=== PATIENT | female | born 1955 | race Caucasian/White ===

== ENCOUNTER 2018-03-01 13:21 | Emergency (ER) | payer BC ==
--- OUTSIDE RECORDS SUMMARY | 2018-03-01 13:24 | XMS REPORT ---
:1955 Author Organization [employer] Care Team Providers Name Role Phone Lucero, Na Provider Role Unavailable Allergies, Adverse Reactions, Alerts Substance Reaction Event Type N.K.D.A. Info Not Available Non Drug Allergy Problems Problem Type Condition Code Onset Dates Condition Status Problem Chronic kidney disease (CKD) stage N18.3 Active G3a/A1, moderately decreased glomerular filtration rate (GFR) between 45-59 mL/min/1.73 square meter and albuminuria creatinine ratio less than 30 mg/g Problem Depression with anxiety F41.8 Active Problem Mixed hyperlipidemia E78.2 Active Problem Encounter for routine adult Z00.01 Active physical exam with abnormal findings Problem Personal history of other malignant Z85.118 Active neoplasm of bronchus and lung Problem Pneumococcal vaccination Z23 Active administered at current visit Problem Low back pain M54.5 Active Problem Acquired hypothyroidism E03.9 Active Problem Essential hypertension I10 Active Problem Lung cancer C34.90 Active Assessment Personal history of other malignant Z85.118 Active neoplasm of bronchus and lung Assessment Mixed hyperlipidemia E78.2 Active Assessment Depression with anxiety F41.8 Active Assessment Chronic fatigue R53.82 Active Problem Chronic fatigue R53.82 Active Assessment Acquired hypothyroidism E03.9 Active Problem 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 Medications Medication Code Code Instructions Start End Status Dosage System Date Date Effexor XR [facility] 93037153238 37.5 MG Orally January 02, Active 1 capsule Once a day 2018 with food Lexapro ND 56041906128 10 MG Orally Inactive 1 tablet Once a day Crestor [facility] 07480633712 10 MG Orally Active 1 tablet Once a day Levothyroxine [facility] 49862417294 112 MCG Orally Active 1 tablet Sodium Once a day on an empty stomach in the morning Xanax ND 02990230358 0.5 MG Orally January 02, Active 1 tablet Twice a day 2017 Results Name Result Date Reference Range Unit Abnormality Flag Vitamin D, 25-Hydroxy Summary Purpose [employer] Submission
--- OUTSIDE RECORDS SUMMARY | 2018-03-01 13:24 | XMS REPORT | Clinical Summary ---
:1955 Author Organization [facility] Address [address] [place] [address] Care Team Providers Name Role Phone Barbi Lucero DO Primary Care Provider Allergies No Known Allergies Current Medications Prescription Sig. Disp. Refills Start Date End Date Status ALPRAZolam (XANAX) 0.5 mg. 0 01/02/2018 Active 0.5 MG tablet LEVOXYL 112 mcg 112 mcg. 0 01/21/2018 Active tablet venlafaxine XR 75 mg. 0 02/02/2018 Active (EFFEXOR-XR) 75 MG 24 hr capsule therapeutic Take 1 tablet Active multivitamin by mouth daily. (THERAGRAN) tablet CALCIUM Take by mouth. Active CITRATE-VITAMIN D3 ORAL gabapentin Take 1 capsule 90 capsule 0 02/25/2018 03/04/2018 Active (NEURONTIN) 300 mg (300 mg total) capsule by mouth 3 (three) times a day for 7 days. acetaminophen Take 1 tablet 15 tablet 0 02/25/2018 03/02/2018 Active (TYLENOL EXTRA (500 mg total) STRENGTH) 500 MG by mouth every tablet 8 (eight) hours for 5 days. naproxen (NAPROSYN) Take 1 tablet 6 tablet 0 02/25/2018 02/28/2018 375 MG tablet (375 mg total) by mouth 2 (two) times a day with meals for 3 days. Active Problems Problem Noted Date Lung nodule 02/24/2018 Encounters Date Type Specialty Care Team Description 02/26/2018 Telephone Cardiothoracic Marino Soriano Surgery MD [facility] 02/26/2018 Telephone Cardiothoracic Christianne Willard MA 02/24/2018 Hospital Encounter Radiology Marino Soriano Lung rosalva; MD [facility] Pre-op testing 02/24/2018 - Hospital Encounter Cardiology BoMarino Lung nodule 02/25/2018 MD [facility] 02/24/2018 Anesthesia Event Cardiothoracic Clifton Olguin Surgery 02/24/2018 Procedure Pass Cardiothoracic Surgery 02/24/2018 Surgery Cardiothoracic Bo Jonmayelin PERCUTANEOUS NEEDLE Surgery MD [facility] LOCALIZATION, ROBOTIC ASSISTED THORACOSCOPIC LEFT LOWER LOBE WEDGE RESECTION, POSSIBLE MEDIASTINAL LYMPH NODE DISSECTION 02/23/2018 Telephone Cardiothoracic Steve, Surgery Vanessa Newton NP 02/13/2018 Hospital Encounter Radiology Marino Soriano Lung nodule; MD [facility] Personal history of lung cancer 02/10/2018 Telephone Cardiothoracic Kiara, Surgery [place], [place] 02/09/2018 Telephone Cardiothoracic Christianne Craig, MIRLANDE 02/06/2018 Procedure Pass Radiology 02/06/2018 Orders Only Cardiothoracic Meiyoon, Lung nodule (Primary Dx); Surgery Vanessa Newton NP Personal history of lung cancer 02/05/2018 Hospital Encounter Radiology Marino Soriano MD 02/05/2018 Lab Lab Marino Soriano Lung nodule; MD [facility] Pre-op testing 02/05/2018 Office Visit Cardiothoracic Marino Soriano Lung nodule (Primary Dx ); Surgery MD [facility] Pre-op testing 02/05/2018 Hospital Encounter Pulmonology Marino Soriano MD 02/05/2018 Ancillary Orders Radiology Marino Soriano MD 02/05/2018 Orders Only Cardiothoracic ProviderChristianne MD 02/05/2018 Telephone Cardiothoracic Kiara Surgery [place], [place] 02/04/2018 Orders Only Cardiothoracic Kiara, Lung nodule (Primary Surgery Jeniffer, [place] Dx) 02/03/2018 Telephone Cardiothoracic Kiara Surgery [place], [place] 02/03/2018 Orders Only Cardiothoracic Provider, Christianne Scott MD after 02/28/2017 Family History Medical History Relation Name Comments Diabetes Father Lung disease Mother Relation Name Status Comments Father Mother Social History Tobacco Use Types Packs/Day Years Used Date Former Smoker Cigarettes 1 6 Quit: 07/2014 Smokeless Tobacco: Never Used Alcohol Use Drinks/Week oz/Week Comments Yes 4 Glasses of wine 2.4 Sex Assigned at Date Recorded Not on file Last Filed Vital Signs Vital Sign Reading Time Taken Blood Pressure 145/79 02/25/2018 1:54 PM CDT Pulse 66 02/25/2018 1:54 PM CDT Temperature 35.4 C (95.8 F) 02/25/2018 12:07 PM CDT Respiratory Rate 18 02/25/2018 4:14 AM CDT Oxygen Saturation 98% 02/25/2018 12:07 PM CDT Inhaled Oxygen Concentration - - Weight 82.1 kg (180 lb 14.4 oz) 02/25/2018 4:48 AM CDT Height 167.6 cm (5' 6") 02/24/2018 6:56 AM CDT Body Mass Index 29.2 02/25/2018 4:48 AM CDT Plan of Treatment Date Type Specialty Care Team Description 03/09/2018 Office Visit Cardiothoracic Surgery Vanessa Wilson NP [address] [phone] 04/02/2018 Office Visit Cardiothoracic Surgery Marino Soriano MD [address] [phone] Health Maintenance Due Date Last Done Comments CERVICAL CANCER SCREENING 12/08/1976 BREAST CANCER SCREENING 12/08/2005 COLON CANCER SCREENING 12/08/2005 SHINGRIX VACCINE (#1) 12/08/2005 ZOSTER VACCINE 2015 INFLUENZA VACCINE 04/01/2018 Procedures Procedure Name Priority Date/Time Associated Comments Diagnosis XR CHEST 1 VW PORTABLE STAT 02/25/2018 11:26 Results for this AM CDT procedure are in the results section. HC COMPLETE BLD COUNT Routine 02/25/2018 4:30 Results for this W/AUTO DIFF AM CDT procedure are in the results section. XR CHEST 1 VW PORTABLE Routine 02/25/2018 1:46 Results for this AM CDT procedure are in the results section. ESTIMATED GFR Routine 02/25/2018 12:00 Results for this AM CDT procedure are in the results section. COMPREHENSIVE METABOLIC Routine 02/25/2018 12:00 Results for this PANEL AM CDT procedure are in the results section. XR CHEST 1 VW PORTABLE STAT 02/24/2018 5:54 Results for this PM CDT procedure are in the results section. SURGICAL PATHOLOGY Routine 02/24/2018 4:31 Results for this REQUEST PM CDT procedure are in the results section. GLUCOSE LEVEL, SYRINGE STAT 02/24/2018 4:05 Results for this PM CDT procedure are in the results section. IONIZED CALCIUM, STAT 02/24/2018 4:05 Results for this ARTERIAL PM CDT procedure are in the results section. POTASSIUM, SYRINGE STAT 02/24/2018 4:05 Results for this PM CDT procedure are in the results section. HEMOGLOBIN, SYRINGE STAT 02/24/2018 4:05 Results for this PM CDT procedure are in the results section. SODIUM LEVEL, SYRINGE STAT 02/24/2018 4:05 Results for this PM CDT procedure are in the results section. ARTERIAL BLOOD GAS, STAT 02/24/2018 4:05 Results for this CORRECTED PM CDT procedure are in the results section. ARTERIAL LINE Routine 02/24/2018 3:31 Results for this PM CDT procedure are in the results section. IONIZED CALCIUM, STAT 02/24/2018 3:14 Results for this ARTERIAL PM CDT procedure are in the results section. GLUCOSE LEVEL, SYRINGE STAT 02/24/2018 3:14 Results for this PM CDT procedure are in the results section. POTASSIUM, SYRINGE STAT 02/24/2018 3:14 Results for this PM CDT procedure are in the results section. HEMOGLOBIN, SYRINGE STAT 02/24/2018 3:14 Results for this PM CDT procedure are in the results section. ARTERIAL BLOOD GAS, STAT 02/24/2018 3:14 Results for this CORRECTED PM CDT procedure are in the results section. SODIUM LEVEL, SYRINGE STAT 02/24/2018 3:14 Results for this PM CDT procedure are in the results section. TN AN ELECTIVE Routine 02/24/2018 3:09 Results for this ENDOTRACHEAL AIRWAY PM CDT procedure are in the results section. CT CHEST WO CONTRAST Routine 02/24/2018 7:51 Lung nodule Results for this AM CDT Pre-op testing procedure are in the results section. MRI BRAIN W WO CONTRAST Routine 02/13/2018 11:55 Lung nodule Results for this AM CDT Personal history procedure are in of lung cancer the results section. ECG 12-LEAD Routine 02/05/2018 4:40 Results for this PM CDT procedure are in the results section. PREPARE RBC Routine 02/05/2018 4:35 Results for this PM CDT procedure are in the results section. PARTIAL THROMBOPLASTIN Routine 02/05/2018 4:35 Lung nodule Results for this TIME (PTT) PM CDT Pre-op testing procedure are in the results section. PROTHROMBIN TIME WITH Routine 02/05/2018 4:35 Lung nodule Results for this INR PM CDT Pre-op testing procedure are in the results section. HC COMPLETE BLD COUNT Routine 02/05/2018 4:35 Lung nodule Results for this W/AUTO DIFF PM CDT Pre-op testing procedure are in the results section. TYPE AND SCREEN Routine 02/05/2018 4:35 Lung nodule Results for this PM CDT Pre-op testing procedure are in the results section. ESTIMATED GFR Routine 02/05/2018 4:14 Results for this PM CDT procedure are in the results section. COMPREHENSIVE METABOLIC Routine 02/05/2018 4:14 Lung nodule Results for this PANEL PM CDT Pre-op testing procedure are in the results section. SPIROMETRY, DIFFUSION, Routine 02/05/2018 2:27 Lung nodule Results for this LUNG VOLUMES PM CDT procedure are in the results section. PULMONARY FUNCTION TEST Routine 02/05/2018 12:[address] WHOLE BODY Routine 01/22/2018 9:43 Results for this EXTERNAL STUDY AM CDT procedure are in the results section. PET CT SKULL BASE MID Routine 01/22/2018 12:00 THIGH EXTERNAL STUDY AM CDT CT SOFT TISSUE NECK W Routine 01/14/2018 12:[address] CHEST W CONTRAST Routine 01/14/2018 12:00 AM CDT after 02/28/2017 Results XR Chest 1 Vw Portable (02/25/2018 11:26 AM)Only the most recent of3 resultswithin the time period is included. Narrative Performed At EXAMINATION:XR CHEST 1 VW PORTABLE HM [facility] CLINICAL HISTORY:Chest Tube Removal XR CHEST 1 VW PORTABLEimages are submitted COMPARISON:02/18/1718 FINDINGS: The previously seen left thoracostomy tube has been removed. There is no evidence of a pneumothorax. The cardiac silhouette is normal in size. The right lung zone remains clear. There is no evidence of a pneumothorax. Persistent subcutaneous emphysema seen in the soft tissues of the left neck. IMPRESSION: 1. Interval removal of the left thoracostomy tube with no evidence of a pneumothorax. [facility]-[id number] Procedure Note Hm Interface, Radiology Results Incoming - 02/25/2018 11:44 AM CDT EXAMINATION: XR CHEST 1 VW PORTABLE CLINICAL HISTORY: Chest Tube Removal XR CHEST 1 VW PORTABLE images are submitted COMPARISON: 02/18/1718 FINDINGS: The previously seen left thoracostomy tube has been removed. There is no evidence of a pneumothorax. The cardiac silhouette is normal in size. The right lung zone remains clear. There is no evidence of a pneumothorax. Persistent subcutaneous emphysema seen in the soft tissues of the left neck. IMPRESSION: 1. Interval removal of the left thoracostomy tube with no evidence of a pneumothorax. [facility]-[id number] Performing Organization Address City/State/Zipcode Phone Number DANIEL [address] [place] [address] CBC with platelet and differential (02/25/2018 4:30 AM)Only the most recent of2 resultswithin the time period is included. WBC 9.35 4.50 - 11.00 k/uL [facility] GENOMIC MEDICINE RBC 4.13 (L) 4.20 - 5.50 m/uL [facility] HGB 11.5 (L) 12.0 - 16.0 g/dL [facility] GENOMIC MEDIC[facility] HCT 37.2 37.0 - 47.0 % [facility] GEN[facility]IC MEDICINE MCV 90.1 82.0 - 100.0 fL [facility]IC[facility] MCH 27.8 27.0 - 34.0 pg [facility]ICINE MCHC 30.9 (L) 31.0 - 37.0 g/dL [facility] GENOMIC MEDICINE RDW - SD 42.8 37.0 - 55.0 fL [facility] GENOMIC MEDICINE MPV 11.2 8.8 - 13.2 fL [facility]IC[facility] Platelet count 143 (L) 150 - 400 k/uL [facility]ICINE Nucleated RBC 0.00 /100 WBC [facility] GENOMIC MEDICINE Neutrophils 89.2 (H) 39.0 - 69.0 % [facility]IC[facility] Lymphocytes 7.2 (L) 25.0 - 45.0 % [facility]ICINE Monocytes 3.3 0.0 - 10.0 % [facility]OMIC MEDICINE Eosinophils 0.0 0.0 - 5.0 % [facility] GENOMIC MEDICINE Basophils 0.1 0.0 - 1.0 % [facility] GENOMIC MEDICINE Immature granulocytes 0.2Comment: 0.0 - 1.0 % [facility] OF "Immature PATHOLOGY AND GENOMIC granulocytes" MEDICINE (promyelocytes, myelocytes, metamyelocytes) Specimen Blood Performing Organization Address City/[facility] Phone Number [facility] PATHOLOGY AND [address] [place] [id number] [employer] [facility] Estimated GFR (02/25/2018)Only the most recent of2 resultswithin the time period is included. GFR Non Af Amer 85 mL/min/1.73 m2 [facility] PATHOLOGY [facility] GENOMIC MEDICINE GFR Af Amer >90 mL/min/1.73 m2 [facility] OF Comment: PATHOLOGY AND GENOMIC Chronic kidney disease: <60 mL/min/1.73m2 MEDICINE Kidney failure: <15 mL/min/1.73m2 The estimated GFR is calculated from the IDMS-traceable Modification of Diet in Renal Disease Equation. The accuracy of the calculation is poor when the creatinine is normal. Calculated values >90 mL/min/1.73m2 are not reported. This equation has not been validated in children (<18 years), women, the elderly (>70 years), or ethnic groups other than Caucasians and Americans. Specimen Plasma specimen Performing Organization Address City/[facility] Cent[facility]ode Phone Number [facility] PATHOLOGY AND [address] [place] [address] [facility] Comprehensive metabolic panel (02/25/2018)Only the most recent of2 resultswithin the time period is included. Sodium 139 135 - 148 mEq/L [facility] PATHOLOGY AND GENOMIC MEDICINE Potassium 5.0 3.5 - 5.0 mEq/L [facility] PATHOLOGY AND GENOMIC MEDICINE Chloride 98 98 - 112 mEq/L [facility] PATHOLOGY AND GENOMIC MEDICINE CO2 30 24 - 31 mEq/L [facility] PATHOLOGY AND GENOMIC MEDICINE Anion gap 11@ANIO 7 - 15 mEq/L [facility] PATHOLOGY AND GENOMIC MEDICINE BUN 13 8 - 23 mg/dL [facility] PATHOLOGY AND GENOMIC MEDICINE Creatinine 0.7 0.5 - 0.9 mg/dL [facility]OLOGY AND GENOMIC MEDICINE Glucose 126 (H) 65 - 99 mg/dL [facility] PATHOLOGY AND GENOMIC MEDICINE Calcium 9.4 8.8 - 10.2 mg/dL [facility] PATHOLOGY AND GENOMIC MEDICINE Protein 6.5 6.3 - 8.3 g/dL [facility] DEPARTMENT OF Comment: PATHOLOGY AND GENOMIC 4.6-7.0 g/dL MEDICINE 1 week 4.4-7.6 g/dL 7 months-1year5.1-7.3 g/dL 1-2 years5.6-7.5 g/dL >3 years6.0-8.0 g/dL 18-150 6.3-8.3 g/dL Albumin 3.5 3.5 - 5.0 g/dL [facility] PATHOLOGY AND GENOMIC MEDICINE A/G ratio 1.2 0.7 - 3.8 [facility] PATHOLOGY AND GENOMIC MEDICINE Alkaline phosphatase 69 35 - 104 U/L [facility] OF PATHOLOGY AND GENOMIC MEDICINE AST 20 10 - 35 U/L [facility] OF PATHOLOGY AND GENOMIC MEDICINE ALT 13 5 - 50 U/L [facility] OF PATHOLOGY AND GENOMIC MEDICINE Total bilirubin <0.2 0.0 - 1.2 mg/dL [facility] OF PATHOLOGY AND GENOMIC MEDICINE Specimen Plasma specimen Performing Organization Address City/[facility]ercode Phone Number [facility] DEPARTMENT OF PATHOLOGY AND [address] [place] [address] GENOMIC MEDICINE Surgical pathology request (02/24/2018 4:31 PM) [facility] OF PATHOLOGY AND GENOMIC MEDICINE Surgical pathology report See link below for PDF [facility] OF Lab Report PATHOLOGY AND GENOMIC MEDICINE Result status This is Final Report to [facility] OF [id number] PATHOLOGY AND GENOMIC MEDICINE Performing Organization Address City/[facility] Cent[facility]ode Phone Number [facility] DEPARTMENT OF PATHOLOGY AND [address] [place] [id number] GENOMIC MEDICINE Sodium level, syringe (02/24/2018 4:05 PM)Only the most recent of2 resultswithin the time period is included. Sodium, syringe 139 135 - 148 mEq/L [facility] OF PATHOLOGY AND GENOMIC MEDICINE Specimen Blood Performing Organization Address City/[facility] Cent[facility]ode Phone Number [facility]MENT OF PATHOLOGY AND [address] [place] [phone] GENOMIC MEDICINE Potassium, syringe (02/24/2018 4:05 PM)Only the most recent of2 resultswithin the time period is included. Potassium, syringe 3.0 (LL) 3.5 - 5.0 mEq/L [facility] OF PATHOLOGY AND GENOMIC MEDICINE Specimen Blood Performing Organization Address [facility] Centercode Phone Number [facility] DEPARTMENT OF PATHOLOGY AND [address] [place] [address] Ionized calcium, arterial (02/24/2018 4:05 PM)Only the most recent of2 resultswithin the time period is included. Ionized calcium, arterial 0.91 (L) 1.11 - 1.32 mmol/L [facility] OF PATHOLOGY AND GENOMIC MEDICINE Specimen Blood Performing Organization Address [facility]oco Phone Number [facility] DEPARTMENT OF PATHOLOGY AND [address] [place] [address] Hemoglobin, syringe (02/24/2018 4:05 PM)Only the most recent of2 resultswithin the time period is included. Hemoglobin, syringe 10.1 (L) 12.0 - 16.0 g/dL [facility] OF PATHOLOGY AND GENOMIC MEDICINE Specimen Blood Performing Organization Address [facility] Phone Number [facility] DEPARTMENT OF PATHOLOGY AND [address] [place] [address] Glucose level, syringe (02/24/2018 4:05 PM)Only the most recent of2 resultswithin the time period is included. Glucose, syringe 103 (H) 65 - 99 mg/dL [facility] OF PATHOLOGY AND GENOMIC MEDICINE Specimen Blood Performing Organization Address [facility] Phone Number [facility] DEPARTMENT OF PATHOLOGY AND [address] [place] [address] Arterial blood gas, corrected (02/24/2018 4:05 PM)Only the most recent of2 resultswithin the time period is included. pH, arterial 7.38 7.35 - 7.45 [facility] OF PATHOLOGY AND GENOMIC MEDICINE pCO2, arterial 40 35 - 45 mmHg [facility] OF PATHOLOGY AND GENOMIC MEDICINE pO2, arterial 157 (H) 80 - 90 mmHg [facility] OF PATHOLOGY AND GENOMIC MEDICINE Temperature, Celsius 37.0 Degrees C [facility] OF PATHOLOGY AND GENOMIC MEDICINE O2 saturation, arterial 99 95 - 100 % [facility] OF PATHOLOGY AND GENOMIC MEDICINE pH, arterial corrected 7.38 [facility] OF PATHOLOGY AND GENOMIC MEDICINE pCO2, arterial corrected 40 mmHg [facility] OF PATHOLOGY AND GENOMIC MEDICINE pO2, arterial corrected 157 mmHg [facility] OF PATHOLOGY AND GENOMIC MEDICINE Base excess, arterial -1 -2 - 2 mEq/L [facility] OF PATHOLOGY AND GENOMIC MEDICINE Specimen Blood Performing Organization Address City/State/Zipcode Phone Number [facility] DEPARTMENT OF PATHOLOGY AND [address] [place] [address] GENOMIC MEDICINE Arterial line (02/24/2018 3:31 PM) Narrative Performed At Valeria Davalos MD 02/24/20183:32 PM Arterial line Performed by: VALERIA DAVALOS Authorized by: DIANNE MONTALVO Patient Location:OR Start Time:02/24/2018 2:55 PM End Time:02/24/2018 3:03 PM Staff: Anesthesiologist:DIANNE MONTALVO Resident/SYSTEMS SOFTWARE SPECIALIST/AA:VALERIA DAVALOS Performed by:Anesthesiologist Pre-procedure: patient identified, IV checked, site and side verified, risks and benefits discussed, procedure verified, surgical consent complete, patient position confirmed, monitors and equipment checked and pre-op evaluation complete MSBT: antiseptic used, all elements of maximal sterile barrier technique followed, hand hygiene performed, cap/gown used by other personnel and solutions labeled TIme Out Performed:02/24/2018 2:55 PM Indications: Indications: hemodynamic monitoring Anesthesia: Anesthesia:General Procedure Details: Arterial Line placement:Placed post induction Line placement site:Brachial Line placement side:Right Arterial line gauge:20 G Number of attempts:2 Ultrasound guidance used: Yes Post-procedure: Post-procedure:Sterile dressing applied Post procedure circulation, sensation, movement:Normal Patient tolerance:Patient tolerated the procedure well with no immediate complications ANESTHESIA INTUBATION (02/24/2018 3:09 PM) Narrative Performed At Valeria Davalos MD 02/24/20183:16 PM Airway Date/Time: 02/24/2018 2:46 PM Performed by: VALERIA DAVALOS Authorized by: DIANNE MONTALVO Location:OR Urgency:Elective Anesthesiologist:DIANNE MONTALVO Resident/SYSTEMS SOFTWARE SPECIALIST/AA:VALERIA DAVALOS Other Anesthesia Staff:VANE LOUISE Performed by: anesthesiologist Preoxygenated with 100% O2: Yes C-spine Precautions Maintained Throughout: No Mask Ventilation:Easy mask Final Airway Type:Endotracheal airway Final Endotracheal Airway:ETT - double lumen left Cuffed: Yes Technique Used:Direct laryngoscopy Devices/Methods Used in Placement:Fiberoptic Insertion Site:Oral Blade Type:Jean Paul Laryngoscope Blade/Videolaryngoscope Blade Size:3 ETT Double Lumen (fr):37 Cuff at minimum occlusion pressure: Yes Measured from:Teeth ETT to Teeth (cm):30 Placement Verified by: CO2 detection, direct visualization, equal breath sounds and fiber optic visualization Laryngoscopic view:Grade IIa - partial view of glottis Rapid Sequence Induction (RSI): No Modified RSI: No Number of Attempts at Approach:2 DL x 1 with Williamson 2 by SHIN Louise. DL x 1 with Mac [address] Chest Wo Contrast (02/24/2018 7:51 AM) Narrative Performed At EXAMINATION: [employer] [address] CHEST WO CONTRAST CLINICAL HISTORY: R91.1 Solitary pulmonary nodule, Z01.818 Encounter for other preprocedural examination, LLLlung nodule TECHNIQUE:Multiple axial images of the chest were obtained without intravenous contrast. The lack of intravenous contrast reduces the sensitivity of detecting solid organ disease and evaluating vasculature. Sagittal and coronal computerized reformatted images were also obtained. CT imaging was performed with iterative reconstruction techniques and/or automated exposure control to reduce radiation dose. COMPARISON: None. IMPRESSION: Study was performed for preoperative mapping. The patient was in a left decubitus position. There is infiltration about the right hilum and the right mainstem bronchus. There is a 1 cm nodule present in the superior segment of the left lower lobe. A pleural effusion is not present. No bony destructive lesions are appreciated. [facility]-[id number] Procedure Note Interface, Radiology Results Incoming - 02/24/2018 8:11 AM CDT EXAMINATION: CT CHEST WO CONTRAST CLINICAL HISTORY: R91.1 Solitary pulmonary nodule, Z01.818 Encounter for other preprocedural examination, LLLlung nodule TECHNIQUE: Multiple axial images of the chest were obtained without intravenous contrast. The lack of intravenous contrast reduces the sensitivity of detecting solid organ disease and evaluating vasculature. Sagittal and coronal computerized reformatted images were also obtained. CT imaging was performed with iterative reconstruction techniques and/or automated exposure control to reduce radiation dose. COMPARISON: None. IMPRESSION: Study was performed for preoperative mapping. The patient was in a left decubitus position. There is infiltration about the right hilum and the right mainstem bronchus. There is a 1 cm nodule present in the superior segment of the left lower lobe. A pleural effusion is not present. No bony destructive lesions are appreciated. [facility]-[id number] Performing Organization Address [facility]/Zipcode Phone Number DANIEL [address] [place] [address] MRI Brain W Wo Contrast (02/13/2018 11:55 AM) Narrative Performed At EXAMINATION: MRI BRAIN W WO CONTRAST [facility] COMPARISON: None CLINICAL HISTORY R91.1 Solitary pulmonary nodule, Z85.118 Personal history of other malignant neoplasm of bronchus and lung, lung nodulepersonal h o lung cancer (Stage IIIB). TECHNIQUE: Multiplanar multisequence examination was performed with and without contrast FINDINGS: There is no definite diffusion restriction. The ventricles and subarachnoid spaces are mildly dilated. There are minimal chronic microvascular ischemic changes in the centrum semiovale bilaterally. There is no acute hemorrhage. There is no hemosiderin deposition. The craniocervical junction is unremarkable. There are no abnormal enhancing lesions within the brain parenchyma or the leptomeninges There is a partially empty sella turcica. IMPRESSION: Mild involutional changes Partially empty sella turcica. No abnormal enhancing metastatic disease. [facility]-[id number] Procedure Note Interface, Radiology Results Incoming - 02/13/2018 2:03 PM CDT EXAMINATION: MRI BRAIN W WO CONTRAST COMPARISON: None CLINICAL HISTORY R91.1 Solitary pulmonary nodule, Z85.118 Personal history of other malignant neoplasm of bronchus and lung, lung nodule personal h o lung cancer (Stage IIIB). TECHNIQUE: Multiplanar multisequence examination was performed with and without contrast FINDINGS: There is no definite diffusion restriction. The ventricles and subarachnoid spaces are mildly dilated. There are minimal chronic microvascular ischemic changes in the centrum semiovale bilaterally. There is no acute hemorrhage. There is no hemosiderin deposition. The craniocervical junction is unremarkable. There are no abnormal enhancing lesions within the brain parenchyma or the leptomeninges There is a partially empty sella turcica. IMPRESSION: Mild involutional changes Partially empty sella turcica. No abnormal enhancing metastatic disease. [facility]-[id number] Performing Organization Address City/[facility]/Zipcode Phone Number DANIEL [address] [place] [address] ECG 12 lead (02/05/2018 4:40 PM) Ventricular rate 74 [facility] Atrial rate 74 [facility] TN interval 162 [facility] QRSD interval 84 [facility] QT interval 390 [facility] QTC interval 432 [facility] P axis 1 81 [facility] QRS axis 1 57 [facility] T wave axis 8 [facility] EKG impression Normal sinus rhythm-Low voltage QRS-Cannot [facility] rule out Anterior infarct , age undetermined-Abnormal ECG-No previous ECGs available- Performing Organization Address [facility] Phone Number [facility] [address] [place] [phone] Partial thromboplastin time, activated (02/05/2018 4:35 PM) PTT 26.8 23.0 - 36.0 sec [facility] DEPARTMENT OF PATHOLOGY Comment: AND GENOMIC MEDICINE PTT therapeutic range for unfractionated heparin is 61.0-112.0 seconds which corresponds to Anti-Xa 0.3-0.7 U/ml. Specimen Blood Performing Organization Address [facility] Cent[facility]ode Phone Number [facility] AND [address] [place] [address] [facility] Smarty Ring Prothrombin time with INR (02/05/2018 4:35 PM) Prothrombin time 13.6 12.0 - 15.0 sec [facility] DEPARTMENT OF PATHOLOGY AND GENOMIC MEDICINE INR 1.0 [facility] DEPARTMENT OF Comment: PATHOLOGY AND GENOMIC The International Normalized Ratio (INR) is a therapeutic MEDICINE monitoring tool for patients who are stable on oral anticoagulant therapy. An INR of 2.0-3.0 is suggested for deep vein thrombosis/pulmonary embolism. Specimen Blood Performing Organization Address [facility] Centercode Phone Number [facility] AND [address] [place] [address] [facility] Prepare RBC (02/05/2018 4:35 PM) Product name Apheresis Red Cell AS3 #2 LR [facility] DEPARTMENT OF PATHOLOGY AND GENOMIC MEDICINE Unit number [id number] [facility]PART[facility]OLOGY AND GENOMIC MEDICINE Product code [id number] [facility] PATHOLOGY AND GENOMIC MEDICINE Dispense status Returned to not [facility] OF transfused PATHOLOGY AND GENOMIC MEDICINE Blood expiration date [facility]OLOGY AND GENOMIC MEDICINE Blood type code 0600 [facility] DE[facility] OF PATHOLOGY AND GENOMIC MEDICINE Blood type A NEGATIVE [facility] DEPART[facility] OF PATHOLOGY AND GENOMIC MEDICINE Product name Apheresis -1 LR #2 [facility] DEPART[facility] OF PATHOLOGY AND GENOMIC MEDICINE Unit number [id number] [facility] PATHOLOGY AND GENOMIC MEDICINE Product code [id number] [facility] DEPART[facility] OF PATHOLOGY AND GENOMIC MEDICINE Dispense status Returned to BB not [facility] OF transfused PATHOLOGY AND GENOMIC MEDICINE Blood expiration date [facility] OF PATHOLOGY AND GENOMIC MEDICINE Blood type code 0600 [facility] DEPARTMENT OF PATHOLOGY AND GENOMIC MEDICINE Blood type A NEGATIVE [facility] DE[facility] OF PATHOLOGY AND GENOMIC MEDICINE Performing Organization Address City/[facility] Centercode Phone Number [facility] DEPART[facility] OF [facility]OLOGY AND [address] [place] [address] GENOMIC MEDICINE Type and screen (02/05/2018 4:35 PM) ABO grouping A [facility] OF PATHOLOGY AND GENOMIC MEDICINE Rh type NEG [facility] DE[facility] OF PATHOLOGY AND GENOMIC MEDICINE Antibody screen (gel) NEG [facility] DEPARTMENT OF PATHOLOGY AND GENOMIC MEDICINE Specimen Blood Performing Organization Address City/[facility]ercode Phone Number [facility] DEPART[facility] OF [facility]OLOGY AND [address] [place] [address] GENOMIC MEDICINE Spirometry, diffusion, lung volumes (02/05/2018 2:27 PM) FEV1 Pre 1.53 2.15 - 3.43 L [facility] FEV1/FVC % Pre 75.82 67.84 - 87.43 % [facility] FVC Pre 2.01 2.87 - 4.38 L [facility] PEF Pre 3.46 4.78 - 8.53 L/s [facility] FEF 25-75% Pre 1.23 1.08 - 3.80 L/s [facility] DLCO Pre 16.39 16.11 - 29.11 ml/(min*mmHg) [facility] DL/VA Pre 5.36 2.96 - 5.59 ml/(min*mmHg*L) [facility] VA SB Pre 3.06 4.45 - 6.66 L [facility] DLCOc Pre 16.39 16.11 - 29.11 ml/(min*mmHg) [facility] KCOc SB Pre 5.36 2.96 - 5.59 ml/(min*mmHg*L) [facility] Hb Pre 13.40 g(Hb)/dL [facility] R0.5IN Pre 3.04 3.06 - 3.06 cmH2O*s/L [facility] FRCpl Pre 2.44 2.05 - 3.70 L [facility] RV Pre 1.86 1.50 - 2.65 L [facility] TLC Pre 3.89 4.45 - 6.43 L [facility] RV % TLC Pre 47.68 30.45 - 49.63 % [facility] VC Pre 2.04 2.87 - 4.38 L [facility] ERV Pre 0.59 0.80 - 0.80 L [facility] IC Pre 1.45 2.36 - 2.36 L [facility] sR0.5IN Pre 8.38 cmH2O*s [facility] Raw Pre 4.02 3.06 - 3.06 cmH2O*s/L [facility] sGaw Predicted 0.09 0.10 - 0.10 1/(cmH2O*s) [facility] FEV1 Predicted 2.79 [facility] FEV1 LLN 2.15 [facility] FEV1 % Pre of Predicted 54.6 % [facility] FVC Predicted 3.63 [facility] FVC LLN 2.87 [facility] FVC % Pre of Predicted 55.5 % [facility] FEV1/FVC % Predicted 78 [facility] FEV1/FVC % LLN 68 [facility] FEV1/FVC % Pre of Predicted 97.7 % [facility] FEF 25-75% Predicted 2.44 [facility] FEF 25-75% LLN 1.08 [facility] FEF 25-75% % Pre of Predicted 50.5 % [facility] PEF Predicted 6.65 [facility] PEF LLN 4.78 [facility] PEF % Pre of Predicted 52.1 % [facility] VC Predicted 3.63 [facility] VC LLN 2.87 [facility] VC % Pre of Predicted 56.2 % [facility] ERV Predicted 0.80 [facility] ERV LLN 0.80 [facility] ERV % Pre of Predicted 73.1 % [facility] FRCpl % Predicted 2.87 [facility] FRCpl % LLN 2.05 [facility] FRCpl % Pre of Predicted 85.0 % [facility] IC Predicted 2.36 [facility] IC LLN 2.36 [facility] IC % Pre of Predicted 61.5 % [facility] RV Predicted 2.07 [facility] RV LLN 1.50 [facility] RV % Pre of Predicted 89.6 % [facility] RV % TLC Predicted 40 [facility] RV % TLC LLN 30 [facility] RV % TLC % Pre of Predicted 119.1 % [facility] TLC Predicted 5.44 [facility] TLC LLN 4.45 [facility] TLC % Pre of Predicted 71.5 % [facility] Raw Predicted 3.06 [facility] Raw LLN 3.06 [facility] Raw % Pre of Predicted 131.4 % [facility] R0.5IN Predicted 3.06 [facility] R0.5IN LLN 3.06 [facility] R0.5IN % Pre of Predicted 99.5 % [facility] sGaw Predicted 0.10 [facility] sGaw LLN 0.10 [facility] sGaw % Pre of Predicted 88.7 % [facility] DLCO Predicted 22.61 [facility] DLCO LLN 16.11 [facility] DLCO % Pre of Predicted 72.5 % [facility] DLCOc Predicted 22.61 [facility] DLCOc LLN 16.11 [facility] DLCOc % Pre of Predicted 72.5 % [facility] DL/VA Predicted 4.28 [facility] DL/VA LLN 2.96 [facility] DL/VA % Pre of Predicted 125.3 % [facility] KCOc SB Predicted 4.28 [facility] KCOc SB LLN 2.96 [facility] KCOc SB % Pre of Predicted 125.3 % [facility] VA SB Predicted 5.55 [facility] VA SB LLN 4.45 [facility] VA SB % Pre of Predicted 55.1 % [facility] MIP Predicted 55.05 [facility] MIP LLN 24.71 [facility] MEP Predicted 68.87 [facility] MEP LLN 24.67 [facility] MVV Predicted 103 [facility] MVV LLN 87 [facility] Performing Organization Address City/State/Zipcode Phone Number [facility] [address] [place] [address] Pulmonary function tests, complete (02/05/2018) Narrative Performed At PET/CT Whole Body External Study (01/22/2018 9:43 AM) Narrative Performed At This exam was not acquired at a [facility] facility and has not been [facility] interpreted by a [facility] Provider.The exam was imported into our imaging system for comparisons purposes. Performing Organization Address City/State/Zipcode Phone Number LOBO SANCHEZ [address] [place] [address] PET/CT Skull Base Mid Thigh External Study (01/22/2018) Narrative Performed At CT Chest W Contrast (01/14/2018) Narrative Performed At CT Soft Tissue Neck W Contrast (01/14/2018) Narrative Performed At after 02/28/2017 Insurance Payer Benefit Plan / Group Subscriber ID Type Phone Address BCBS BCBS CHOICE PPO/FEDERAL EMPL PPO xxxxxxxxxxxx PPO Work: [id number] [facility] [phone] [address]. Madisyn [place], [place] [address] [phone] [facility]
--- OUTSIDE RECORDS SUMMARY | 2018-03-01 13:24 | XMS REPORT ---
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 Medications Medication Code Code Instructions Start End Status Dosage System Date Date Synthroid [facility] 18694147227 112 MCG Inactive 1 EACH ONCE A DAY ORALLY Crestor [facility] 46669094602 10 MG Orally Active 1 tablet Once a day Levothyroxine [facility] 11016032242 100 MCG Orally Active 1 tablet Sodium Once a day on an empty stomach in the morning Xanax ND 49555837877 0.5 MG Orally January 02, Active 1 tablet Twice a day 2017 Effexor XR [facility] 19821395143 37.5 MG Orally Inactive 1 capsule Once a day with food Effexor XR [facility] 77628032698 75 MG Orally January 02, Active 1 capsule Once a day 2018 with food Results No Known Results Immunizations Vaccine Administration Date Pneumovax February 06, 2018 Summary Purpose eClinicalWorks Submission
[2018-03-01 14:27] LABS: Absolute Lymphocytes (CBC) 1.1 K/uL (0.7-4.9); Absolute Monocytes 0.6 K/uL (0.1-1.3); Absolute Neutrophil 5.5 K/uL (1.8-8.0); Basophils % 0.5 % (0-1.3); Eosinophils % 2.4 % (0-4.4); Hematocrit 41.3 % (36.0-45.0); Lymphocytes % 14.5 % (15.3-44.8); MCH 27.9 pg (27.0-35.0); MCV 85.5 fL (80-100); MPV 9.3 fL (7.6-11.3); Monocytes % 7.8 % (3.3-12.3); RBC Red Blood Cell Count 4.83 M/uL (3.86-4.86)
[2018-03-01 14:33] LABS: Protime INR 0.95
[2018-03-01 14:54] LABS: ALT/SGPT 44 U/L (12-78); AST/SGOT 42 U/L (15-37); Albumin 3.8 g/dL (3.4-5.0); Alkaline Phosphatase 81 U/L (45-117); BUN Blood Urea Nitrogen 15 mg/dL (7-18); Bicarbonate 33 mmol/L (21-32); Bilirubin Direct < 0.1 mg/dL (0-0.2); Bilirubin Total 0.3 mg/dL (0.2-1.0); CKMB Creatine Kinase MB < 1.0 ng/mL (0.3-3.6); Creatine Phosphokinase 70 U/L (26-192); Glucose Level 91 mg/dL (74-106); Magnesium 2.4 mg/dL (1.8-2.4); NT PRO-BNP 103 pg/mL (<125); Potassium 4.8 mmol/L (3.5-5.1); Protein, Total 7.4 g/dL (6.4-8.2); Sodium Level 141 mmol/L (136-145)
--- NOTE | 2018-03-01 15:43 | RAD REPORT ---
EXAM DESCRIPTION: CT - Chest For Pe Angio - 03/01/2018 3:25 pm CLINICAL HISTORY: Chest pain. ABDOMINAL DISTENTION COMPARISON: Thorax W/ Con dated 01/14/2018; Ct Skull/Thigh dated 01/22/2018; Abdomen Pelvis W Contra st dated 03/01/2018 TECHNIQUE: CT angiogram of the pulmonary arteries was performed with MIP. All CT scans are performed using dose optimization technique as appropriate and may include automated exposure control or mA/KV adjustment according to patient size. FINDINGS: No evidence of pulmonary thromboembolism. No acute aortic finding demonstrated. Postsurgical changes are present in the superior segment left lower lobe medially. Small amount of le ft pleural thickening or pleural fluid is present. Ill-defined airspace opacity is present in the rig ht upper lobe medially, likely related to scarring. No acute airspace consolidations suggest bronchop neumonia. No pericardial effusion or right pleural effusion. No concerning bony finding. IMPRESSION: No evidence of pulmonary thromboembolism. Postsurgical changes superior segment left lower lobe medially. No acute lung finding suspected.
--- NOTE | 2018-03-01 15:45 | RAD REPORT ---
EXAM DESCRIPTION: CTAbdomen Pelvis W Contrast - 03/01/2018 3:25 pm CLINICAL HISTORY: Abdominal pain. CONSTIPATION COMPARISON: Chest Abdomen Pelvis W Cont dated 06/25/2017; Ct Skull/Thigh dated 01/22/2018; Thorax W/ Con dated 01/14/2018 TECHNIQUE: Biphasic CT imaging of the abdomen and pelvis was performed with 100 ml non-ionic IV cont rast. All CT scans are performed using dose optimization technique as appropriate and may include automated exposure control or mA/KV adjustment according to patient size. FINDINGS: Small amount of left pleural fluid is noted.Postsurgical changes are present superior segm ent left lower lobe. The liver, spleen, pancreas, adrenal glands and kidneys are within normal limits. Small benign cyst i s noted right kidney. Colonic diverticulosis is noted without diverticulitis. No bowel obstruction, free air, free fluid or abscess. Small fat containing umbilical hernia. The mitali endix is normal. No evidence of significant lymphadenopathy. No suspicious bony findings. Air is present in the urinary bladder. IMPRESSION: Significant air is present in the urinary bladder which may be related to recent instrum entation or infection. Colonic diverticulosis without diverticulitis.
--- NOTE | 2018-03-01 16:19 | EDPHYS ---
Physician Documentation [facility] Name: Lynda Méndez Age: 62 yrs Sex: Female : 1955 Arrival Date: 03/01/2018 Time: 13:22 Bed 25 Private MD: Barbi Lucero ED Physician Yakov Everett HPI: 03/01 14:10 This 62 yrs old Female presents to ER via Ambulatory with complaints of High snw Blood Pressure. 14:10 The patient has elevated blood pressure and discovered this at home. Onset: The snw symptoms/episode began/occurred and became persistent. Modifying factors: The symptoms are aggravated by activity. Associated signs and symptoms: The patient has no apparent associated signs or symptoms. Severity of symptoms: At its worst the blood pressure was 150 mm Hg. It is unknown whether or not the patient has had similar symptoms in the past. The patient has been recently seen by a physician: Inpatient at [facility]. pt had biopsy of lung lesion, lymph nodes, had chest tube placed and then removed. Historical: - PMHx: 13:39 completed chemo and radiation; lung CA ( Aug 2014 diagnosed); lk1 - PSHx: 13:39 C section; biopsy of lymph noed to R anterior chest wall.; Tonsillectomy; lk1 13:40 10mm lump removed from LLL lung; lk1 - Immunization history:: Adult Immunizations up to date. - Social history:: Smoking status: Patient/guardian denies using tobacco. - Ebola Screening: : No symptoms or risks identified at this time. ROS: 14:08 Constitutional: Negative for fever, chills, and weight loss, Eyes: Negative for injury, snw pain, redness, and discharge, ENT: Negative for injury, pain, and discharge, Neck: Negative for injury, pain, and swelling, Cardiovascular: Negative for chest pain, palpitations, and edema, Respiratory: Negative for shortness of breath, cough, wheezing, and pleuritic chest pain, Abdomen/GI: Negative for nausea, vomiting, diarrhea, + abdominal distention/pain, + constipation Back: Negative for injury and pain, : Negative for injury, bleeding, discharge, and swelling, MS/Extremity: Negative for injury and deformity, Skin: Negative for injury, rash, and discoloration, Neuro: Negative for headache, weakness, numbness, tingling, and seizure. Exam: 14:03 Head/Face: Normocephalic, atraumatic. Eyes: Pupils equal round and reactive to light, snw extra-ocular motions intact. Lids and lashes normal. Conjunctiva and sclera are non-icteric and not injected. Cornea within normal limits. Periorbital areas with no swelling, redness, or edema. ENT: Nares patent. No nasal discharge, no septal abnormalities noted. Tympanic membranes are normal and external auditory canals are clear. Oropharynx with no redness, swelling, or masses, exudates, or evidence of obstruction, uvula midline. Mucous membranes moist. Neck: Trachea midline, no thyromegaly or masses palpated, and no cervical lymphadenopathy. Supple, full range of motion without nuchal rigidity, or vertebral point tenderness. No Meningismus. Chest/axilla: Normal chest wall appearance and motion. Nontender with no deformity. No lesions are appreciated. 14:03 Chest/axilla: Normal chest wall appearance and motion. Nontender with no deformity. recent surgical procedure. + sutures in place from recent chest tube insertion Back: No spinal tenderness. No costovertebral tenderness. Full range of motion. Skin: Warm, dry with normal turgor. Normal color with no rashes, no lesions, and no evidence of cellulitis. MS/ Extremity: Pulses equal, no cyanosis. Neurovascular intact. Full, normal range of motion. Neuro: Awake and alert, GCS 15, oriented to person, place, time, and situation. Cranial nerves II-XII grossly intact. Motor strength 5/5 in all extremities. Sensory grossly intact. Cerebellar exam normal. Normal gait. 14:03 Constitutional: The patient appears alert, awake. 14:03 Cardiovascular: Rate: tachycardic, Rhythm: regular, Pulses: no pulse deficits are appreciated, Edema: is not appreciated. 14:03 Respiratory: the patient does not display signs of respiratory distress, Respirations: normal, Breath sounds: are clear throughout. 14:03 Abdomen/GI: Inspection: distension, that is mild, that is moderate, Bowel sounds: active, all quadrants, Palpation: abdomen is soft and non-tender. Vital Signs: 13:40 BP 146 / 83; Pulse 96; Resp 18; Temp 97.3(TE); Pulse Ox 98% on R/A; Weight 81.65 kg lk1 (R); Height 5 ft. 7 in. (170.18 cm) (R); Pain 9/10; 14:38 BP 161 / 105; Pulse 98; Resp 20; Pulse Ox 98% on R/A; kr2 15:30 BP 152 / 90; Pulse 95; Resp 17; Pulse Ox 97% on R/A; kr2 16:17 BP 155 / 93; Pulse 94; Resp 20; Pulse Ox 97% on R/A; kr2 13:40 Body Mass Index 28.19 (81.65 kg, 170.18 cm) lk1 MDM: 14:00 Patient medically screened. snw 14:18 Data reviewed: vital signs, nurses notes. Data interpreted: Pulse oximetry: on room air snw is 98 %. Interpretation: normal. Counseling: I had a detailed discussion with the patient and/or guardian regarding: the historical points, exam findings, and any diagnostic results supporting the discharge/admit diagnosis, the presence of at least one elevated blood pressure reading (>120/80) during this emergency department visit. ED course: pt with hx ca, +smoker, recent hospitalization and lung surgery, no anticoagulants. 03/01 14:00 Order name: Basic Metabolic Panel; Complete Time: 15:07 snw 03/01 14:00 Order name: CBC with Diff; Complete Time: 14:39 snw 03/01 14:00 Order name: Ckmb; Complete Time: 15:07 snw 03/01 14:00 Order name: CPK; Complete Time: 15:07 snw 03/01 14:00 Order name: LFT's; Complete Time: 15:07 snw 03/01 14:00 Order name: Magnesium; Complete Time: 15:07 snw 03/01 14:00 Order name: NT PRO-BNP; Complete Time: 15:07 snw 03/01 14:00 Order name: PT-INR; Complete Time: 14:39 snw 03/01 14:00 Order name: Ptt, Activated; Complete Time: 14:39 snw 03/01 14:00 Order name: CT Chest For PE Angio; Complete Time: 15:57 snw 03/01 15:11 Order name: Abdomen ; Complete Time: 15:57 EDMS 03/01 16:16 Order name: Urine Dipstick--Ancillary (enter results) em1 03/01 14:00 Order name: EKG; Complete Time: 14:00 snw 03/01 14:00 Order name: Cardiac monitoring; Complete Time: 14:22 snw 03/01 14:00 Order name: EKG - Nurse/Tech; Complete Time: 14:39 snw 03/01 14:00 Order name: IV Saline Lock; Complete Time: 14:21 snw 03/01 14:00 Order name: Labs collected and sent; Complete Time: 14:22 snw 03/01 14:00 Order name: O2 Per Protocol; Complete Time: 14:22 snw 03/01 14:00 Order name: O2 Sat Monitoring; Complete Time: 14:22 snw 03/01 14:00 Order name: Urine Dipstick-Ancillary (obtain specimen); Complete Time: 16:38 snw Administered Medications: 16:20 Drug: Bisacodyl 5 mg Route: PO; kr2 16:38 Follow up: Response: Medication administered at discharge. kr2 16:20 Drug: Bisacodyl 5 mg Route: PO; kr2 16:37 Follow up: Response: Medication administered at discharge. kr2 16:37 Drug: Dulcolax Suppository 10 mg Route: IL; kr2 16:38 Follow up: Response: Medication administered at discharge. kr2 Disposition: 18:35 Co-signature as Attending Physician, Yakov Everett MD. Disposition: 03/01/18 16:18 Discharged to Home. Impression: Constipation. - Condition is Stable. - Discharge Instructions: Constipation, Adult, High-Fiber Diet. - Prescriptions for Miralax 17 gram/dose Oral - take 1 packet by ORAL route once daily dilute powder in 8 ounces of water or juice; 1 box. - Medication Reconciliation Form, Thank You Letter, Antibiotic Education, Prescription Opioid Use form. - Follow up: Barbi Lucero MD; When: 1 - 2 days; Reason: Recheck today's complaints, Continuance of care, Re-evaluation by your physician. Signatures: Dispatcher [employer] EDMS Miesha Fisher, DIGITAL TECH-C DIGITAL TECH-Csnw Neeru Rossi, RN RN [email or web address] Yakov Everett MD MD Bailey Daniels RN RN kr2 Corrections: (The following items were deleted from the chart) 13:40 13:39 Allergies: No Known Allergies; cherelle [email or web address] 15:11 14:00 Abdomen Pelvis Wo Con+CT.RAD.BRZ ordered. EDMS EDMS 16:40 16:18 03/01/2018 16:18 Discharged to Home. Impression: Constipation. Condition is kr2 Stable. Forms are Medication Reconciliation Form, Thank You Letter, Antibiotic Education, Prescription Opioid Use. Follow up: Barbi Lucero; When: 1 - 2 days; Reason: Recheck today's complaints, Continuance of care, Re-evaluation by your physician. snw
--- NOTE | 2018-03-01 16:19 | ER ---
Nurse's Notes [facility] Name: Lynda Méndez Age: 62 yrs Sex: Female : 1955 Arrival Date: 03/01/2018 Time: 13:22 Bed 25 Private MD: Barbi Lucero Diagnosis: Constipation Presentation: 03/01 13:37 Presenting complaint: Patient states: "I had surgery this week on a spot on my lung. My lk1 blood pressure has been high. I haven't been able to go to the bathroom well, and I vomited yesterday.". Transition of care: patient was not received from another setting of care. Onset of symptoms was February 25, 2018. Risk Assessment: Do you want to hurt yourself or someone else? Patient reports no desire to harm self or others. Initial Sepsis Screen: Does the patient meet any 2 criteria? No. Patient's initial sepsis screen is negative. Does the patient have a suspected source of infection? No. Patient's initial sepsis screen is negative. Care prior to arrival: None. 13:37 Method Of Arrival: Ambulatory lk1 13:37 Acuity: SWATHI 3 lk1 Triage Assessment: 14:34 General: Appears in no apparent distress. comfortable, well groomed, well developed, kr2 well nourished, Behavior is calm, cooperative, appropriate for age. Pain: Complains of pain in abdomen Pain currently is 5 out of 10 on a pain scale. Quality of pain is described as pressure, Is continuous, Alleviated by nothing. Aggravated by eating. Historical: - PMHx: 13:39 completed chemo and radiation; lung CA ( Aug 2014 diagnosed); lk1 - PSHx: 13:39 C section; biopsy of lymph noed to R anterior chest wall.; Tonsillectomy; lk1 13:40 10mm lump removed from LLL lung; lk1 - Immunization history:: Adult Immunizations up to date. - Social history:: Smoking status: Patient/guardian denies using tobacco. - Ebola Screening: : No symptoms or risks identified at this time. Screenin:33 Abuse screen: Denies threats or abuse. Denies injuries from another. Nutritional kr2 screening: No deficits noted. Tuberculosis screening: No symptoms or risk factors identified. Fall Risk None identified. Assessment: 13:45 General: Appears in no apparent distress. uncomfortable, well groomed, well developed, kr2 well nourished, Behavior is calm, cooperative, appropriate for age. Pain: Complains of pain in abdomen Pain currently is 5 out of 10 on a pain scale. Quality of pain is described as pressure, Is continuous. Neuro: Level of Consciousness is awake, alert, obeys commands, Oriented to person, place, time, situation, Appropriate for age. Cardiovascular: Capillary refill < 3 seconds in bilateral fingers Patient's skin is warm and dry. Respiratory: Airway is patent Respiratory effort is even, unlabored, Respiratory pattern is regular, symmetrical, Parent/caregiver reports the patient having recent surgery for lung cancer. Denies chest pain. States she does continue to smoke. GI: Abdomen is flat, non-distended. GI: Reports nausea, vomiting. : No signs and/or symptoms were reported regarding the genitourinary system. EENT: Oral mucosa is moist. Derm: Skin is intact, with poor turgor Skin is pink, warm \\T\\ dry. Musculoskeletal: Circulation, motion, and sensation intact. 15:00 Reassessment: Patient appears in no apparent distress at this time. Patient and/or kr2 family updated on plan of care and expected duration. Pain level reassessed. Patient is alert, oriented x 3, equal unlabored respirations, skin warm/dry/pink. 16:00 Reassessment: Patient appears in no apparent distress at this time. Patient and/or kr2 family updated on plan of care and expected duration. Pain level reassessed. Patient is alert, oriented x 3, equal unlabored respirations, skin warm/dry/pink. Vital Signs: 13:40 BP 146 / 83; Pulse 96; Resp 18; Temp 97.3(TE); Pulse Ox 98% on R/A; Weight 81.65 kg lk1 (R); Height 5 ft. 7 in. (170.18 cm) (R); Pain 9/10; 14:38 BP 161 / 105; Pulse 98; Resp 20; Pulse Ox 98% on R/A; kr2 15:30 BP 152 / 90; Pulse 95; Resp 17; Pulse Ox 97% on R/A; kr2 16:17 BP 155 / 93; Pulse 94; Resp 20; Pulse Ox 97% on R/A; kr2 13:40 Body Mass Index 28.19 (81.65 kg, 170.18 cm) lk1 ED Course: 13:22 Patient arrived in ED. sb2 13:23 Barbi Lucero MD is Private Physician. sb2 13:38 Triage completed. lk1 13:42 Arm band placed on right wrist. lk1 13:45 Patient has correct armband on for positive identification. Bed in low position. Call kr2 light in reach. Side rails up X 1. monitoring analyst on. Pulse ox on. NIBP on. Door closed. Warm blanket given. Head of bed elevated. 13:46 Bailey Daniels, PERLA is Primary Nurse. kr2 13:48 [facility] Fisher [facility]C [facility]. snw 13:48 Yakov Everett MD is Attending Physician. snw 14:12 Radiology exam delayed due to lab results not completed at this time. (BUN/Creatinine). sj 14:39 Inserted saline lock: 22 gauge in left forearm, using aseptic technique. Blood em1 collected. 14:45 EKG done, by ED staff, reviewed by Miesha DEL VALLE. tt1 15:26 CT Chest For PE Angio In Process Unspecified. EDMS 15:26 Abdomen In Process Unspecified. EDMS 16:12 Barbi Lucero MD is Referral Physician. snw 16:39 No provider procedures requiring assistance completed. IV discontinued, intact, kr2 bleeding controlled, No redness/swelling at site. Pressure dressing applied. Administered Medications: 16:20 Drug: Bisacodyl 5 mg Route: PO; kr2 16:38 Follow up: Response: Medication administered at discharge. kr2 16:20 Drug: Bisacodyl 5 mg Route: PO; kr2 16:37 Follow up: Response: Medication administered at discharge. kr2 16:37 Drug: Dulcolax Suppository 10 mg Route: [place]; kr2 16:38 Follow up: Response: Medication administered at discharge. kr2 Outcome: 16:18 Discharge ordered by . snw 16:40 Discharged to home ambulatory, with family. kr2 16:40 Condition: good 16:40 Discharge instructions given to patient, family, Instructed on discharge instructions, follow up and referral plans. medication usage, Demonstrated understanding of instructions, follow-up care, medications, Prescriptions given X 1. 16:40 Patient left the ED. kr2 Signatures: Dispatcher [employer] EDMiesha Laurent, ELECTRONICS PROCESSING SUPERVISOR-C ELECTRONICS PROCESSING SUPERVISOR-Csnw Shana Andrade Eric em1 Chloe Mata tt1 Neeru Rossi RN RN lk1 Bailey Daniels RN RN kr2 Ida Bojorquez sb2 Corrections: (The following items were deleted from the chart) 13:40 13:39 Allergies: No Known Allergies; lk1 lk1
[2018-03-01] MEDS ORDERED: BISACODYL 10 MG RECTAL SUPP ONE (16:28)
[2018-03-01] MEDS ORDERED: BISACODYL E.C. 5 MG TAB PO ONE (16:28)
[2018-03-01 16:44] VITALS: TEMP 97.3
[2018-03-01 16:46] VITALS: O2SAT 97
[2018-03-01 16:48] VITALS: BP 155/93
[2018-03-01 17:04] LABS: Urine Blood NEGATIVE (NEG); Urine Glucose NEGATIVE (NEG); Urine Protein NEGATIVE (NEG); Urine Specific Gravity 1.015 (1.005-1.030); Urine pH 7.5 (5.0-7.0)
--- NOTE | 2018-03-02 06:37 | EKG ---
Test Date: 2018-03-01 Test Time: 14:45:22 [employer]: TT MEASUREMENT RESULTS: Intervals: Rate: 74 KS: 158 QRSD: 78 QT: 388 QTc: 430 [place]: P: 55 KS: 158 QRS: 14 T: -6 INTERPRETIVE STATEMENTS: Normal sinus rhythm T wave abnormality, consider anterior ischemia Incomplete right bundle branch block Abnormal ECG Compared to ECG 04/09/2017 08:46:42 no significant change from previous ECG Electronically Signed On 03-02-18 06:36:40 CDT by Jass Francisco
== END 2018-03-01 16:40 | disposition home or self-care (01) ==
LOC: ER 13:21
DX: K59.00 Constipation, unspecified (principal); Z85.118 Personal history of other malignant neoplasm of bronchus and lung
CPT/HCPCS: 36415; 71275; 74177; 80048; 80076; 81003; 82550; 82553; 83735; 83880; 85025; 85610; 85730; 93005; 99285; Q9967